=== PATIENT | male | born 1960 | race Caucasian/White ===

== ENCOUNTER → 2017-05-25 | Outpatient (CLI) | payer OTHER | LOC: M LAB 16:31 | PROVIDERS: ATTEND Physical Medicine & Rehabilitation | DX: D69.1 Qualitative platelet defects (principal) ==

== ENCOUNTER → 2017-09-13 | Outpatient (REF) | payer OTHER | LOC: M LABDRAW1 13:48 | PROVIDERS: ATTEND Physical Medicine & Rehabilitation | DX: M47.816 Spondylosis without myelopathy or radiculopathy, lumbar region (principal) ==

== ENCOUNTER → 2018-03-08 | Outpatient (REF) | payer OTHER ==
[2018-03-08 12:37] LABS: C REACTIVE PROTEIN QUANTITATIV 0.85 MG/DL (0.00-0.30)
== END ==
LOC: M LAB REF 11:36
DX: M48.07 Spinal stenosis, lumbosacral region (principal)

== ENCOUNTER → 2021-05-13 | Outpatient (CLI) | payer OTHER ==
[2021-05-13 17:51] LABS: COLLAGEN EPINEPHRINE 81 SECONDS (74-162)
== END ==
LOC: M LAB 16:39
PROVIDERS: ATTEND Physical Medicine & Rehabilitation
DX: Z01.818 Encounter for other preprocedural examination (principal)